=== PATIENT | female | born 1985 | race Caucasian/White ===

== ENCOUNTER 2017-05-11 18:32 | Emergency (ER) | payer SELFPAY ==
[~2017-05-11] VITALS: Ht 162.6 cm; Wt 82.6 kg
[~2017-05-11 18:32] MED LIST: AMOX500C2 PO; AMOX875T2 PO; AZIT-21 PO; AZIT250T PO; HYDR-3812 PO; HYDR1TAB PO; METH4TAB PO; NITR-65 PO; NITR100C3 PO; PHEN100T26 PO; PHEN200T27 PO; PRD20T PO; SULF1TAB38 PO; TRAM50TA2 PO
--- NOTE | 2017-05-11 18:53 | ED GU-Female ---
General Stated Complaint: CRAMPING;6 WKS ;SPOTTING Source: patient, family (mom) Exam Limitations: no limitations History of Present Illness Time seen by provider: 18:40 Initial Comments Patient has ER by private conveyance with chief complaint that 5 days ago she experienced a small amount of bright red bleeding from the vagina after sexual intercourse and went to her doctor who told her that she did have a bacterial infection but was too early on to treat it. She's having no vaginal pain, itching, discomfort. No dysuria. She denies any fever, chills, cough, shortness of breath, nausea vomiting or diarrhea. However today she started experiencing some painful crampy pain in the distribution of bilateral inguinal ligaments. She is a . Her first one was induced early secondary to preeclampsia and her second one was at about 36 weeks. Her last missed her period is March 20 which puts her at 7 weeks and 4 days. She has had 1 ultrasound which was done at [place] and she says she does not recall whether a pole was seen. She doctors in [place] but lives here in [place] which is why she came to the ER tonight for her crampy abdominal pain. She is not presently having any bleeding and has not had any bleeding since 5 days ago. All vaginal deliveries. She had a bowel movement today that was normal for her although she says her bowel movements has not been normal since she had to have her colostomy takedown. 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 Superintendent [employer] is Dr. Jose Ba in [place], [place]. Allergies and Home Medications Allergies Coded Allergies: sulfamethoxazole (Unverified Allergy, Mild, 12/24/08) trimethoprim (Unverified Allergy, Mild, 12/24/08) Home Medications Azithromycin 250 Mg Tablet, 250 MG PO UD, #6 TAKE 2 TABLETS TODAY, THEN TAKE 1 TABLET DAILY FOR 4 MORE DAYS Prescribed by: KARMA MORA on 03/11/161647 Prednisone 20 Mg Tab, 40 MG PO DAILY, #8 Prescribed by: KARMA MORA on 03/11/161647 Constitutional: No chills, No diaphoresis, No fever, No malaise EENTM: No hearing loss, No ear pain, No blurred vision Respiratory: No cough, No short of breath Cardiovascular: No chest pain, No palpitations Gastrointestinal: abdominal pain (LLQ, RRQ), No constipation, No diarrhea, No nausea, No vomiting Genitourinary: see HPI, denies burning, discharge (Brown), denies dysuria, denies flank pain, denies hematuria, denies pain : Yes Expected Date of Delivery: Dec 25, 2017 LMP: Mar 20, 2017 Musculoskeletal: No back pain, No joint pain Skin: No pruritus, No rash Psychiatric/Neurological: Denies Headache, Denies Numbness, Denies Paresthesia , Denies Seizure Past Elfhlvn-Iftnbo-Qhnmwz Hx Patient Social History Type Used: Cigarettes Recent Foreign Travel: No Contact w/Someone Who Travel: No Recent Hopitalizations: No Seasonal Allergies Seasonal Allergies: Yes Reproductive System Hx Reproductive Disorders: No Genitourinary Genitourinary Disorders: Bladder Infection Family Medical History Significant Family History: No Pertinent Family Hx Physical Exam Vital Signs Vital Sign - Last 12Hours 05/11/17 18:51 Temp 98.0 Pulse 93 Resp 18 B/P (MAP) 159/92 Pulse Ox 98 O2 Delivery Room Air Capillary Refill : General Appearance: WD/WN, no apparent distress HEENT: PERRL/EOMI, pharynx normal Neck: non-tender, normal inspection Cardiovascular: normal peripheral pulses, regular rate, rhythm, no edema Respiratory: chest non-tender, lungs clear, normal breath sounds Gastrointestinal: normal bowel sounds, soft, No distended, No guarding, No rebound, tenderness (bilateral lower quadrants mildly tender around the inguinal ligaments.) Neurologic/Psychiatric: alert, normal mood/affect, oriented x 3 Skin: normal color, warm/dry Progress/Results/Core Measures Suspected Sepsis SIRS Temperature: Pulse: Respiratory Rate: Laboratory Tests 05/11/17 19:30: White Blood Count 15.4H Blood Pressure / Mean: Laboratory Tests 05/11/17 19:30: Platelet Count 358 Results/Orders Lab Results Laboratory Tests Test 05/11/17 19:17 05/11/17 19:30 Range/Units Urine Color YELLOW Urine Clarity CLEAR Urine pH 7 5-9 Urine Specific Marion 1.015 L 1.016-1.022 Urine Protein NEGATIVE NEGATIVE Urine Glucose (UA) NEGATIVE NEGATIVE Urine Ketones NEGATIVE NEGATIVE Urine Nitrite NEGATIVE NEGATIVE Urine Bilirubin NEGATIVE NEGATIVE Urine Urobilinogen NORMAL NORMAL MG/DL Urine Leukocyte Esterase NEGATIVE NEGATIVE Urine RBC (Auto) NEGATIVE NEGATIVE Urine RBC NONE /HPF Urine WBC RARE /HPF Urine Squamous Epithelial Cells 2-5 /HPF Urine Crystals NONE /LPF Urine Bacteria TRACE /HPF Urine Casts NONE /LPF Urine Mucus SMALL H /LPF Urine Culture Indicated NO Urine Opiates Screen NEGATIVE NEGATIVE Urine Oxycodone Screen NEGATIVE NEGATIVE Urine Methadone Screen POSITIVE H NEGATIVE Urine Propoxyphene Screen NEGATIVE NEGATIVE Urine Barbiturates Screen NEGATIVE NEGATIVE Ur Tricyclic Antidepressants Screen NEGATIVE NEGATIVE Urine Phencyclidine Screen NEGATIVE NEGATIVE Urine Amphetamines Screen POSITIVE H NEGATIVE Urine Methamphetamines Screen NEGATIVE NEGATIVE Urine Benzodiazepines Screen POSITIVE H NEGATIVE Urine Cocaine Screen NEGATIVE NEGATIVE Urine Cannabinoids Screen POSITIVE H NEGATIVE White Blood Count 15.4 H 4.3-11.0 10^3/uL Red Blood Count 4.74 4.35-5.85 10^6/uL Hemoglobin 14.1 11.5-16.0 G/DL Hematocrit 42 35-52 % Mean Corpuscular Volume 88 80-99 FL Mean Corpuscular Hemoglobin 30 25-34 PG Mean Corpuscular Hemoglobin Concent 34 32-36 G/DL Red Cell Distribution Width 14.0 10.0-14.5 % Platelet Count 358 130-400 10^3/uL Mean Platelet Volume 10.0 7.4-10.4 FL Neutrophils (%) (Auto) 64 42-75 % Lymphocytes (%) (Auto) 27 12-44 % Monocytes (%) (Auto) 7 0-12 % Eosinophils (%) (Auto) 1 0-10 % Basophils (%) (Auto) 0 0-10 % Neutrophils # (Auto) 9.9 H 1.8-7.8 X 10^3 Lymphocytes # (Auto) 4.2 H 1.0-4.0 X 10^3 Monocytes # (Auto) 1.1 H 0.0-1.0 X 10^3 Eosinophils # (Auto) 0.2 0.0-0.3 10^3/uL Basophils # (Auto) 0.0 0.0-0.1 10^3/uL My Orders Orders - MICHAEL BLACK Cbc With Automated Diff (05/11/17 18:35) Comprehensive Metabolic Panel (05/11/17 18:35) Drug Screen Stat (Urine) (05/11/17 18:35) Hcg,Quantitative (05/11/17 18:35) Ua Culture If Indicated (05/11/17 18:35) Abo Rh Type (05/11/17 18:35) Us Ob Single Fetus<14 [id number] (05/11/17 18:37) Manual Differential (05/11/17 19:30) Vital Signs/I&O Vital Sign - Last 12Hours 05/11/17 18:51 Temp 98.0 Pulse 93 Resp 18 B/P (MAP) 159/92 Pulse Ox 98 O2 Delivery Room Air Capillary Refill : Progress Note #1: Time: 18:53 Progress Note Since we don't have the information from the ultrasound to rule out possible tubal we'll go ahead and obtain another ultrasound. It does seem likely that her bleeding was more due to the recent vaginal intercourse. Her discharge is known by her OB provider and they have elected not to do a box at this time. We will not repeat a wet prep at this time. We will obtain basic labs and urine and if nothing else looks off and it is most likely that the diagnosis is rounded, pain or some other benign intra-abdominal process. We'll have her follow-up with her OB provider. Progress Note #2: Time: 19:53 Progress Note Patient does have a modest white count of 15,000 however her urine drug screen is positive for amphetamines, benzos, methadone and cannabinoids. When questioned about this she states that all she has taken is Tylenol recently. She asked if it's possible that Tylenol could contain these substances. This provider is not aware of that being a possibility however amphetamines could explain a white count and problems with her bowels being loose. 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 Otherwise her urine does not indicate infection. Her bacterial vaginitis is asymptomatic so is unlikely to be causing her white count to be elevated. While it is in her interest to have her bacterial vaginitis treated despite being asymptomatic there is no impetus to have this done tonight and she can continue to defer this to the care of her ampoule washing machine operator. Diagnostic Imaging Diagonstic Imaging: Ultrasound Plain Films/CT/US/NM/MRI: pelvis (OB less than 14 weeks) Comments equip tech: 6 weeks and 2 days. Heart rate 125. No mention of previa. NAME: JESSICA TOBIAS [facility] REC#: [id number] PHYSICIAN: MICHAEL BLACK MD CC: DEE HOWE MD; MICHAEL BLACK Page 1 of 1 RADIOLOGY REPORT VIA [place], [place] CC: DEE HOWE MD; MICHAEL BLACK Page 1 of 1 RADIOLOGY REPORT NAME: JESSICA TOBIAS [facility] REC#: [id number] PT STATUS: REG ER : 1985 PHYSICIAN: MICHAEL BLACK MD ADMIT DATE: 05/11/17/ER Signed Date of Exam: 05/11/17 US OB SINGLE FETUS<14 [id number] PROCEDURE: US OB SINGLE FETUS <14 WKS. TECHNIQUE: Multiple real-time grayscale images were obtained over the gravid uterus in various projections. INDICATION: Cramping and vaginal discharge. FINDINGS: Within the uterus, there is a single gestational sac. This contains a pole. Its crown-rump length would estimate that this gestation at 6 weeks and 2 days gestational age. cardiac motion is present and measured at 125 beats per minute. No subchorionic hematoma is demonstrated. The ovaries could not be demonstrated due to overlying bowel. No free fluid is demonstrated. IMPRESSION: 1. Single intrauterine gestation at 6 weeks 2 days gestational age demonstrates appropriate cardiac motion at 125 beats per minute. No subchorionic hematoma is demonstrated. Dictated by: Dictated on workstation # [id number] Dict: 05/11/171899 Trans: 05/11/171904 Interpreted by: DEE HOWE MD Electronically signed by: DEE HOWE MD 05/11/171904 Reviewed: Reviewed by Ks Departure Impression Impression: Primary Impression: Round ligament pain Additional Impression: Leukocytosis, unspecified Disposition: 01 HOME, SELF-CARE Condition: Stable Departure-Patient Inst. Decision time for Depature: 19:56 Referrals: NO,LOCAL PHYSICIAN (PCP/Family) Primary Care Physician Patient Instructions: Round Ligament Pain Add. Discharge Instructions: If her pain comes back slow down or sit down and drink a glass of cool water and then try to get some rest. Tylenol 1000 mg every 8 hours would be reasonable to help with her pain. Plan follow-up with Dr. Ba next week for further evaluation. Return to the ER to begin to experience fever, nausea and vomiting, vaginal bleeding or intractable abdominal pain. MICHAEL BLACK May 11, 2017 18:53
--- NOTE | 2017-05-11 19:05 | Diagnostic Imaging Report ---
PROCEDURE: US OB SINGLE FETUS <14 WKS. TECHNIQUE: Multiple real-time grayscale images were obtained over the gravid uterus in various projections. INDICATION: Cramping and vaginal discharge. FINDINGS: Within the uterus, there is a single gestational sac. This contains a pole. Its crown-rump length would estimate that this gestation at 6 weeks and 2 days gestational age. cardiac motion is present and measured at 125 beats per minute. No subchorionic hematoma is demonstrated. The ovaries could not be demonstrated due to overlying bowel. No free fluid is demonstrated. IMPRESSION: 1. Single intrauterine gestation at 6 weeks 2 days gestational age demonstrates appropriate cardiac motion at 125 beats per minute. No subchorionic hematoma is demonstrated. Dictated by: Dictated on workstation # [id number]
[2017-05-11 19:22] LABS: BILIRUBIN,URINE NEGATIVE (NEGATIVE); KETONES,URINE NEGATIVE (NEGATIVE); LEUKOCYTE ESTERASE ,URINE NEGATIVE (NEGATIVE); NITRITE,URINE NEGATIVE (NEGATIVE); PH,URINE 7 (5-9); PROTEIN,URINE NEGATIVE (NEGATIVE); UROBILINOGEN,URINE NORMAL (NORMAL)
[2017-05-11 19:35] LABS: WBC,URINE RARE /HPF
[2017-05-11 19:43] LABS: BASOPHILS % (AUTO) 0 % (0-10); EOSINOPHILS # (AUTO) 0.2 10^3/uL (0.0-0.3); EOSINOPHILS % (AUTO) 1 % (0-10); LYMPHOCYTES # (AUTO) 4.2 X 10^3 (1.0-4.0); LYMPHOCYTES % (AUTO) 27 % (12-44); MEAN CORPUSCULAR HEMOGLOBIN 30 PG (25-34); MEAN CORPUSCULAR HGB CONC 34 G/DL (32-36); MEAN CORPUSCULAR VOLUME 88 FL (80-99); MONOCYTES # (AUTO) 1.1 X 10^3 (0.0-1.0); MONOCYTES % (AUTO) 7 % (0-12); NEUTROPHILS # (AUTO) 9.9 X 10^3 (1.8-7.8); NEUTROPHILS % (AUTO) 64 % (42-75); PLATELET COUNT 358 10^3/uL (130-400); RED BLOOD COUNT 4.74 10^6/uL (4.35-5.85); WHITE BLOOD COUNT 15.4 10^3/uL (4.3-11.0)
[2017-05-11 20:00] LABS: BAND NEUTROPHILS 0 %; BASOPHILS % (MANUAL) 0 %; EOSINOPHILS % (MANUAL) 0 %; LYMPHOCYTES % (MANUAL) 38 %; NEUTROPHILS % (MANUAL) 58 %
[2017-05-11 20:07] LABS: ALANINE AMINOTRANSFERASE 22 U/L (0-55); ALBUMIN 4.2 GM/DL (3.2-4.5); ANION GAP 9 MMOL/L (5-14); ASPARTATE AMINO TRANSFERASE 14 U/L (5-34); BILIRUBIN,TOTAL 0.2 MG/DL (0.1-1.0); BLOOD UREA NITROGEN 10 MG/DL (7-18); BUN/CREATININE RATIO 16; CALCIUM 10.1 MG/DL (8.5-10.1); CARBON DIOXIDE 19 MMOL/L (21-32); CHLORIDE 110 MMOL/L (98-107); CREATININE SERUM 0.63 MG/DL (0.60-1.30); GFR ESTIMATED > 60; GLUCOSE 90 MG/DL (70-105); POTASSIUM 3.8 MMOL/L (3.6-5.0); SODIUM 138 MMOL/L (135-145); TOTAL PROTEIN 6.9 GM/DL (6.4-8.2)
[2017-05-11 20:22] VITALS: BP 122/83
== END 2017-05-11 20:22 | disposition home or self-care (01) ==
LOC: EDUNIT# 18:32 → ER 18:34
DX: O99.89 Other specified diseases and conditions complicating pregnancy, childbirth and the puerperium (principal); R10.2 Pelvic and perineal pain; O99.111 Other diseases of the blood and blood-forming organs and certain disorders involving the immune mechanism complicating pregnancy, first trimester; D72.829 Elevated white blood cell count, unspecified; Z3A.01 Less than 8 weeks gestation of pregnancy
CPT/HCPCS: 36415; 76801; 80053; 80306; 81000; 84702; 85007; 85027; 86900; 86901; 99282

== ENCOUNTER 2017-07-02 23:16 | Emergency (ER) | payer MEDICAID ==
[~2017-07-02] VITALS: Ht 162.6 cm; Wt 83.9 kg
[~2017-07-02 23:16] MED LIST changes: +ACHD5005 PO; -HYDR-3812 PO
--- OUTSIDE RECORDS SUMMARY | 2017-07-02 23:23 | XMS REPORT | Continuity of Care Document ---
Author Author [facility] Organization [facility] Address Unknown Phone Unavailable Allergies Active Description Code Type Severity Reaction Onset Reported/Identified Relationship to Patient Clinical Status Yes sulfamethoxazole [id number] Drug Allergy Mild N/A 12/24/2008 Yes trimethoprim [id number] Drug Allergy Mild N/A 12/24/2008 Medications There is no data. Problems Date Dx Coded Attending Type Code Diagnosis Diagnosed By 12/26/2010 Ot 845.00 SPRAIN OF ANKLE NOS 12/26/2010 Ot 959.7 LOWER LEG INJURY NOS 12/26/2010 Ot E000.8 OTHER EXTERNAL CAUSE STATUS 12/26/2010 Ot E849.0 ACCIDENT IN HOME 12/26/2010 Ot E880.9 FALL ON STAIR/STEP NEC 08/10/2011 Ot 623.5 NONINFECT VAG LEUKORRHEA 11/19/2011 Ot 599.0 URIN TRACT INFECTION NOS 11/19/2011 Ot 788.1 DYSURIA 04/29/2012 Ot 782.1 NONSPECIF SKIN ERUPT NEC 10/29/2012 JUAN ESCOBEDO DO Ot 595.9 CYSTITIS NOS 10/29/2012 JUAN ESCOBEDO DO Ot 788.1 DYSURIA 06/12/2013 KARMA MORA [employer]OTARY ADJUSTER Ot 465.9 ACUTE URI NOS 06/12/2013 KARMA MORA ROTARY ADJUSTER Ot 786.2 COUGH 05/30/2015 Ot 626.0 05/30/2015 KARMA MORA [employer]OTARY ADJUSTER Ot N72 INFLAMMATORY DISEASE OF CERVIX UTERI 05/30/2015 Ot 626.0 10/29/2015 Ot 626.0 ABSENCE OF MENSTRUATION 10/29/2015 RASHEEDA TSUART Ot K04.7 PERIAPICAL ABSCESS WITHOUT SINUS 10/29/2015 Ot 626.0 ABSENCE OF MENSTRUATION 10/30/2015 RASHEEDA STUART Ot K04.7 PERIAPICAL ABSCESS WITHOUT SINUS 01/01/2016 Ot 626.0 ABSENCE OF MENSTRUATION 01/01/2016 TONIE DAY DO D Ot F17.210 NICOTINE DEPENDENCE, CIGARETTES, UNCOMPL 01/01/2016 TONIE DAY DO Nils Ot K01.1 IMPACTED TEETH 01/01/2016 TONIE DAY DO Ot K08.8 OTHER SPECIFIED DISORDERS OF TEETH AND S 01/01/2016 Ot 626.0 ABSENCE OF MENSTRUATION 01/02/2016 BARB VARNER TONIE Wray Ot F17.210 NICOTINE DEPENDENCE, CIGARETTES, UNCOMPL 01/02/2016 BARB VARNER TONIE Wray Ot K01.1 IMPACTED TEETH 01/02/2016 BARB VARNER TONIE Wray Ot K08.8 OTHER SPECIFIED DISORDERS OF TEETH AND S 03/11/2016 KARMA MORA APRN Ot F17.210 NICOTINE DEPENDENCE, CIGARETTES, UNCOMPL 03/11/2016 KARMA MORA APRN Ot J02.9 ACUTE PHARYNGITIS, UNSPECIFIED 03/11/2016 KARMA MORA APRN Ot J40 BRONCHITIS, NOT SPECIFIED ACUTE OR CH 03/11/2016 KARMA MORA APRN Ot R21 RASH AND OTHER NONSPECIFIC SKIN ERUPTION 03/11/2016 KARMA MORA APRN Ot R51 HEADACHE 03/12/2016 KARMA MORA APRN Ot F17.210 NICOTINE DEPENDENCE, CIGARETTES, UNCOMPL 03/12/2016 KARMA MORA APRN Ot J02.9 ACUTE PHARYNGITIS, UNSPECIFIED 03/12/2016 KARMA MORA APRN Ot J40 BRONCHITIS, NOT SPECIFIED ACUTE OR CH 03/12/2016 KARMA MORA APRN Ot R21 RASH AND OTHER NONSPECIFIC SKIN ERUPTION 03/12/2016 KARMA MORA APRN Ot R51 HEADACHE 03/12/2016 KARMA MORA APRN Ot F17.210 NICOTINE DEPENDENCE, CIGARETTES, UNCOMPL 03/12/2016 KARMA MORA APRN Ot J02.9 ACUTE PHARYNGITIS, UNSPECIFIED 03/12/2016 KARMA MORA APRN Ot J40 BRONCHITIS, NOT SPECIFIED ACUTE OR CH 03/12/2016 KARMA MORA APRN Ot R21 RASH AND OTHER NONSPECIFIC SKIN ERUPTION 03/12/2016 KARMA MORA APRN Ot R51 HEADACHE 03/17/2016 KARMA MORA APRN Ot F17.210 NICOTINE DEPENDENCE, CIGARETTES, UNCOMPL 03/17/2016 MORA, PETER J ROTARY ADJUSTER Ot J02.9 ACUTE PHARYNGITIS, UNSPECIFIED 03/17/2016 KARMA MORA ROTARY ADJUSTER Ot J40 BRONCHITIS, NOT SPECIFIED ACUTE OR CH 03/17/2016 KARMA MORA ROTARY ADJUSTER Ot R21 RASH AND OTHER NONSPECIFIC SKIN ERUPTION 03/17/2016 KARMA MORA ROTARY ADJUSTER Ot R51 HEADACHE 05/11/2017 MICHAEL BLACK MD Ot D72.829 ELEVATED WHITE BLOOD CELL COUNT, UNSPECI 05/11/2017 MICHAEL BLACK MD Ot O20.9 HEMORRHAGE IN EARLY , UNSPECIFI 05/11/2017 MICHAEL BLACK MD Ot O99.111 OTH DIS OF BLD/BLD-FORM ORG/IMMUN MECHNS 05/11/2017 MICHAEL BLACK MD Ot O99.89 OTH DISEASES AND CONDITIONS COMPL PREG/C 05/11/2017 MICHAEL BLACK MD Ot R10.2 PELVIC AND PERINEAL PAIN 05/11/2017 MICHAEL BLACK MD Ot Z3A.01 LESS THAN 8 WEEKS GESTATION OF 05/16/2017 MICHAEL BLACK MD Ot D72.829 ELEVATED WHITE BLOOD CELL COUNT, UNSPECI 05/16/2017 MICHAEL BLACK MD Ot O20.9 HEMORRHAGE IN EARLY , UNSPECIFI 05/16/2017 MICHAEL BLACK MD Ot O99.111 OTH DIS OF BLD/BLD-FORM ORG/IMMUN MECHNS 05/16/2017 MICHAEL BLACK MD Ot O99.89 OTH DISEASES AND CONDITIONS COMPL PREG/C 05/16/2017 MICHAEL BLACK MD Ot R10.2 PELVIC AND PERINEAL PAIN 05/16/2017 MICHAEL BLACK MD Ot Z3A.01 LESS THAN 8 WEEKS GESTATION OF Procedures There is no data. Results Test Result Range Complete urinalysis with reflex to culture - 05/11/17 19:17 Urine color determination YELLOW NRG Urine clarity determination CLEAR NRG Urine pH measurement by test strip 7 5-9 Specific gravity of urine by test strip 1.015 1.016- 1.022 Urine protein assay by test strip, semi-quantitative NEGATIVE NEGATIVE Urine glucose detection by automated test strip NEGATIVE NEGATIVE Erythrocytes detection in urine sediment by light microscopy NEGATIVE NEGATIVE Urine ketones detection by automated test strip NEGATIVE NEGATIVE Urine nitrite detection by test strip NEGATIVE NEGATIVE Urine total bilirubin detection by test strip NEGATIVE NEGATIVE Urine urobilinogen measurement by automated test strip (mass/volume) NORMAL NORMAL Urine leukocyte esterase detection by dipstick NEGATIVE NEGATIVE Automated urine sediment erythrocyte count by microscopy (number/high power field) NONE NRG Automated urine sediment leukocyte count by microscopy (number/high power field ) RARE NRG Bacteria detection in urine sediment by light microscopy TRACE NRG Squamous epithelial cells detection in urine sediment by light microscopy 2-5 NRG Crystals detection in urine sediment by light microscopy NONE NRG Casts detection in urine sediment by light microscopy NONE NRG Mucus detection in urine sediment by light microscopy SMALL NRG Complete urinalysis with reflex to culture NO NRG Urine drug screening test - 05/11/17 19:17 Urine phencyclidine detection by screening method NEGATIVE NEGATIVE Urine benzodiazepines detection by screening method POSITIVE NEGATIVE Urine cocaine detection NEGATIVE NEGATIVE Urine amphetamines detection by screening method POSITIVE NEGATIVE Urine methamphetamine detection by screening method NEGATIVE NEGATIVE Urine cannabinoids detection by screening method POSITIVE NEGATIVE Urine opiates detection by screening method NEGATIVE NEGATIVE Urine barbiturates detection NEGATIVE NEGATIVE Screening urine tricyclic antidepressants detection NEGATIVE NEGATIVE Urine methadone detection by screening method POSITIVE NEGATIVE Urine oxycodone detection NEGATIVE NEGATIVE Urine propoxyphene detection NEGATIVE NEGATIVE Complete blood count (CBC) with automated white blood cell (WBC) differential - 05/11/17 19:30 Blood leukocytes automated count (number/volume) 15.4 10*3/uL 4.3-11.0 Blood erythrocytes automated count (number/volume) 4.74 10*6/uL 4.35-5.85 Venous blood hemoglobin measurement (mass/volume) 14.1 g/dL 11.5-16.0 Blood hematocrit (volume fraction) 42 % 35-52 Automated erythrocyte mean corpuscular volume 88 [foz_us] 80-99 Automated erythrocyte mean corpuscular hemoglobin (mass per erythrocyte) 30 pg 25-34 Automated erythrocyte mean corpuscular hemoglobin concentration measurement ( mass/volume) 34 g/dL 32-36 Automated erythrocyte distribution width ratio 14.0 % 10.0-14.5 Automated blood platelet count (count/volume) 358 10*3/uL 130-400 Automated blood platelet mean volume measurement 10.0 [foz_us] 7.4-10.4 Automated blood neutrophils/100 leukocytes 64 % 42-75 Automated blood lymphocytes/100 leukocytes 27 % 12-44 Blood monocytes/100 leukocytes 7 % 0-12 Automated blood eosinophils/100 leukocytes 1 % 0-10 Automated blood basophils/100 leukocytes 0 % 0-10 Blood neutrophils automated count (number/volume) 9.9 10*3 1.8-7.8 Blood lymphocytes automated count (number/volume) 4.2 10*3 1.0-4.0 Blood monocytes automated count (number/volume) 1.1 10*3 0.0-1.0 Automated eosinophil count 0.2 10*3/uL 0.0-0.3 Automated blood basophil count (count/volume) 0.0 10*3/uL 0.0-0.1 ABO+Rh group - 05/11/17 19:30 ABO+Rh group OP NRG Transfusion band number [id number] Blood manual differential performed detection - 05/11/17 19:30 Blood monocytes/100 leukocytes 4 % NRG Manual blood segmented neutrophils/100 leukocytes 58 % NRG Blood band neutrophils/100 leukocytes 0 % NRG Manual blood lymphocytes/100 leukocytes 38 % NRG Manual eosinophils/100 leukocytes in nose 0 % NRG Manual blood basophils/100 leukocytes 0 % NRG Blood erythrocyte morphology finding identification NORMAL [facility] Comprehensive metabolic panel - 05/11/17 19:30 Serum or plasma sodium measurement (moles/volume) 138 mmol/L 135-145 Serum or plasma potassium measurement (moles/volume) 3.8 mmol/L 3.6-5.0 Serum or plasma chloride measurement (moles/volume) 110 mmol/L 98-107 Carbon dioxide 19 mmol/L 21-32 Serum or plasma anion gap determination (moles/volume) 9 mmol/L 5-14 Serum or plasma urea nitrogen measurement (mass/volume) 10 mg/dL 7-18 Serum or plasma creatinine measurement (mass/volume) 0.63 mg/dL 0.60-1.30 Serum or plasma urea nitrogen/creatinine mass ratio 16 NRG Serum or plasma creatinine measurement with calculation of estimated glomerular filtration rate > NRG Serum or plasma glucose measurement (mass/volume) 90 mg/dL 70-105 Serum or plasma calcium measurement (mass/volume) 10.1 mg/dL 8.5-10.1 Serum or plasma total bilirubin measurement (mass/volume) 0.2 mg/dL 0.1-1.0 Serum or plasma alkaline phosphatase measurement (enzymatic activity/volume) 76 U/L 40-136 Serum or plasma aspartate aminotransferase measurement (enzymatic activity/ volume) 14 U/L 5-34 Serum or plasma alanine aminotransferase measurement (enzymatic activity/volume ) 22 U/L 0-55 Serum or plasma protein measurement (mass/volume) 6.9 g/dL 6.4-8.2 Serum or plasma albumin measurement (mass/volume) 4.2 g/dL 3.2-4.5 Serum or plasma choriogonadotropin measurement (units/volume) - 05/11/17 19:30 Serum or plasma choriogonadotropin measurement (units/volume) 24641 m[iU]/mL <5 Encounters ACCT No. Visit Date/Time Discharge Status Pt. Type Provider Facility Loc./Unit Complaint [id number] 05/11/2017 18:34:00 05/11/2017 20:22:00 DIS Emergency MICHAEL BLACK MD [facility] ER CRAMPING;6 WKS ; SPOTTING [id number] 03/11/2016 16:19:00 03/11/2016 16:51:00 DIS Emergency KARMA MORA APRN [facility] ER THROAT;COUGH;HEADACHE [id number] 01/01/2016 21:24:00 01/01/2016 22:08:00 DIS Emergency TONIE DAY DO [facility] ER [id number] 10/29/2015 18:29:00 10/29/2015 19:26:00 DIS Emergency RASHEEDA STUART [facility] ER [id number] 05/30/2015 17:37:00 05/30/2015 20:30:00 DIS Emergency KARMA MOAR APRN [facility] ER [id number] 06/12/2013 14:37:00 06/12/2013 16:12:00 DIS Emergency KARMA MORA APRN [facility] ER [id number] 10/29/2012 14:14:00 10/29/2012 15:08:00 DIS Emergency JUAN ESCOBEDO DO [facility] ER [id number] 07/02/2017 23:19:00 ACT Emergency KATT ESPINOSA MD [facility] ER HEADACHE [id number] 04/29/2012 13:58:00 Document Registration [id number] 11/19/2011 22:29:00 Document Registration [id number] 09/01/2011 14:27:00 Document Registration [id number] 08/10/2011 13:06:00 Document Registration [id number] 12/26/2010 19:57:00 Document Registration
[2017-07-02] MEDS ORDERED: NS IV 1000 ML 1,000 ML IV ONE (23:57)
[2017-07-02] MEDS ORDERED: PROMETHAZINE INJ 25 MG/ML (PHENERGAN) AMP IVP STA (23:57)
[2017-07-02] MEDS ORDERED: ACETAMINOPHEN 500 MG TAB (TYLENOL) PO STA (23:57)
[2017-07-02] MEDS ORDERED: DEXAMETHASONE PF 10 MG/ML (DECADRON) VIAL IV STA (23:57)
[2017-07-02] MEDS ORDERED: DEXAMETHASONE 10 MG/ML (DECADRON) 1 ML VIAL ONE (23:59)
[2017-07-03] MEDS ORDERED: diphenhydrAMINE 50 MG/ML INJ (BENADRYL) IV ONE
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
[2017-07-03 01:34] VITALS: BP 135/84
== END 2017-07-03 01:34 | disposition home or self-care (01) ==
LOC: EDUNIT# 23:16 → ER 23:19
DX: G43.909 Migraine, unspecified, not intractable, without status migrainosus (principal); F17.210 Nicotine dependence, cigarettes, uncomplicated; Z87.440 Personal history of urinary (tract) infections

== ENCOUNTER → 2018-05-18 | Outpatient (CLI) | payer MEDICAID, OTHER ==
--- NOTE | 2018-05-18 18:48 | Diagnostic Imaging Report ---
INDICATION: Pain in the inferior right breast. COMPARISON: No prior studies are available for comparison. TECHNIQUE: 2D and 3D bilateral diagnostic mammography was performed with computer-aided detection (CAD) system. FINDINGS: Both breasts are heterogeneously dense, limiting the sensitivity of mammography. There is a lobulated nodule in the lower and outer aspect of the right breast, approximately 5-7 cm from the nipple. This has circumscribed margins and most likely represents a fibroadenoma or cyst. This will be further evaluated with sonography. Inferior right breast is otherwise unremarkable. Left breast is unremarkable. No suspicious calcifications are seen. Axillae are unremarkable. IMPRESSION: Right breast density in the lower-outer aspect. Further evaluation with ultrasound is recommended. Ultrasound evaluation of the area of pain in the inferior right breast is also recommended and will be performed today. ACR BI-RADS Category 0: Incomplete. (Needs additional imaging evaluation). Result letter will be mailed to the patient. Note: At least 10% of breast cancer is not imaged by mammography. Dictated by: Dictated on workstation # [id number]
--- NOTE | 2018-05-19 08:33 | Diagnostic Imaging Report ---
Indication: Pain in the inferior right breast. Patient also has a nodular density in the lower outer aspect of the right breast. This further evaluation is performed with ultrasound. Correlation is made with diagnostic mammogram from 05/18/2018. There is a circumscribed ovoid hypoechoic nodule in the right breast 8 o'clock location 4 cm from the nipple. This is wider than it is tall. No internal vascularity is seen. This measures 1.0 x 0.7 x 1.2 cm and most suggestive of a fibroadenoma. This does correlate with the mammographic density. No abnormality at the 6 o'clock location in area of patient's pain is identified. Impression: BI-RADS 3 Circumscribed hypoechoic mass 8 o'clock location of the right breast, 4 cm from the nipple. Imaging characteristics are most suggestive of a fibroadenoma. Even so, followup right breast ultrasound in 6 months is recommended to confirm stability. ACR BI-RADS Category 3: Probably benign findings. Dictated by: Dictated on workstation # [id number]
== END ==
LOC: RAD 14:25
PROVIDERS: ATTEND Nurse Practitioner
DX: N63.13 Unspecified lump in the right breast, lower outer quadrant (principal)
CPT/HCPCS: 77066

== ENCOUNTER 2018-08-11 19:50 | Emergency (ER) | payer SELFPAY ==
[~2018-08-11] VITALS: Ht 160 cm; Wt 74.8 kg
[2018-08-11] MEDS ORDERED: LISI10TA2 PO (20:13)
[2018-08-11 21:28] LABS: BASOPHILS % (AUTO) 0 % (0-10); EOSINOPHILS # (AUTO) 0.1 10^3/uL (0.0-0.3); EOSINOPHILS % (AUTO) 1 % (0-10); HEMATOCRIT 42 % (35-52); HEMOGLOBIN 14.2 G/DL (11.5-16.0); LYMPHOCYTES # (AUTO) 2.6 X 10^3 (1.0-4.0); LYMPHOCYTES % (AUTO) 21 % (12-44); MEAN CORPUSCULAR HEMOGLOBIN 29 PG (25-34); MEAN CORPUSCULAR HGB CONC 34 G/DL (32-36); MEAN CORPUSCULAR VOLUME 87 FL (80-99); MEAN PLATELET VOLUME 10.4 FL (7.4-10.4); MONOCYTES # (AUTO) 1.2 X 10^3 (0.0-1.0); MONOCYTES % (AUTO) 10 % (0-12); NEUTROPHILS # (AUTO) 8.2 X 10^3 (1.8-7.8); NEUTROPHILS % (AUTO) 68 % (42-75); PLATELET COUNT 396 10^3/uL (130-400); RED CELL DISTRIBUTION WIDTH 14.4 % (10.0-14.5); WHITE BLOOD COUNT 12.1 10^3/uL (4.3-11.0)
[2018-08-11 21:28] LABS: BILIRUBIN,URINE NEGATIVE (NEGATIVE); CLARITY,URINE CLEAR; COLOR,URINE YELLOW; GLUCOSE, URINE (UA) NEGATIVE (NEGATIVE); KETONES,URINE NEGATIVE (NEGATIVE); LEUKOCYTE ESTERASE ,URINE NEGATIVE (NEGATIVE); NITRITE,URINE NEGATIVE (NEGATIVE); PH,URINE 6 (5-9); PROTEIN,URINE NEGATIVE (NEGATIVE); UROBILINOGEN,URINE NORMAL (NORMAL)
[2018-08-11] MEDS ORDERED: ONDANSETRON 4 MG/2 ML (SDV) Z0FRAN IVP ONE (21:30)
[2018-08-11 21:35] LABS: BACTERIA,URINE MODERATE /HPF; RBC,URINE RARE /HPF; WBC,URINE RARE /HPF
[2018-08-11 21:40] LABS: ALANINE AMINOTRANSFERASE 22 U/L (0-55); ALBUMIN 4.4 GM/DL (3.2-4.5); ALKALINE PHOSPHATASE 77 U/L (40-136); AMYLASE 36 U/L (25-125); BILIRUBIN,TOTAL 0.2 MG/DL (0.1-1.0); BUN/CREATININE RATIO 15; CALCIUM 9.4 MG/DL (8.5-10.1); CARBON DIOXIDE 26 MMOL/L (21-32); CHLORIDE 104 MMOL/L (98-107); CREATININE SERUM 0.67 MG/DL (0.60-1.30); GFR ESTIMATED > 60; GLUCOSE 93 MG/DL (70-105); LIPASE 21 U/L (8-78); POTASSIUM 3.4 MMOL/L (3.6-5.0); SODIUM 140 MMOL/L (135-145)
[2018-08-11] MEDS ORDERED: cefTRIAXone FOR IV USE 1,000 MG in WATER (STERILE) FOR INJECTION 10 ML IV ONE (22:00)
[2018-08-11] MEDS ORDERED: KETOROLAC 30 MG/ML VIAL IVP ONE (22:00)
[2018-08-11] MEDS ORDERED: CEPH-507 PO (22:16)
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
[2018-08-11 22:26] VITALS: BP 111/76
== END 2018-08-11 22:34 | disposition home or self-care (01) ==
LOC: EDUNIT# 19:50 → ER 19:52
DX: N39.0 Urinary tract infection, site not specified (principal); F17.210 Nicotine dependence, cigarettes, uncomplicated; Z98.890 Other specified postprocedural states; Z93.3 Colostomy status; Z87.448 Personal history of other diseases of urinary system; Z88.2 Allergy status to sulfonamides; Z88.6 Allergy status to analgesic agent; Z88.8 Allergy status to other drugs, medicaments and biological substances; Z87.19 Personal history of other diseases of the digestive system; Z77.22 Contact with and (suspected) exposure to environmental tobacco smoke (acute) (chronic)
CPT/HCPCS: 36415; 80053; 81000; 82150; 83690; 85025; 87088; 96374; 96375

== ENCOUNTER 2018-09-29 20:19 | Emergency (ER) | payer SELFPAY ==
[~2018-09-29] VITALS: Ht 160 cm; Wt 78.0 kg
[~2018-09-29 20:19] MED LIST changes: +CEPH-507 PO; +LISI10TA2 PO
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
--- OUTSIDE RECORDS SUMMARY | 2018-09-29 20:24 | XMS REPORT | Continuity of Care Document ---
Author Author [facility] Organization [facility] Address Unknown Phone Unavailable Care Team Providers Care Deck Cadet Name Role Phone NO, LOCAL PHYSICIAN PP Unavailable Insurance Providers Payer Name Policy Number Subscriber Name Relationship Self Pay Nidhi Perez 01 Self / Same As Patient Advance Directives Directive Response Recorded Date Advance Directives N 10/29/12 2:23pm Organ Donor N 10/29/12 2:23pm Problems No Known Problems or Medical conditions. Social History History Response Recorded Date/Time Alcohol Use Occasionally Uses 10/29/12 5: 27pm Recreational Drug Use N 10/29/12 2:23pm Allergies, Adverse Reactions, Alerts Allergen Type Severity Reaction Last Updated Sulfamethoxazole Allergy Mild 12/24/08 trimethoprim Allergy Mild 12/24/08 Medications Medication Dose Units Route Sig Qty Days Phenazopyridine HCl (Pyridium) 1 Each PO TID PRN 15 Nitrofurantoin Macrocrystals (Macrobid) 1 Each PO BID 20 Methylprednisolone (Medrol Dose Pack) 0 PO UD 1 Nitrofurantoin Macrocrystals (Macrobid) 100 Mg PO BID 5 Phenazopyridine HCl (Pyridium) 1 Each PO TID PRN 6 Response Recorded Date/Time Status not known Unknown Results Test Date Result Interp. Ref. Range Chlamydia DNA Probe August 10, 2011 2:52pm NEG - Chlamydia/GC DNA Probe Source August 10, 2011 2:52pm CERVIX - Lipase September 05, 2006 12:34am 155 U/L N 114-286 Neisseria gonorrhoeae DNA Probe August 10, 2011 2:52pm NEG - Serum Test, Qualitative September 01, 2011 2:37pm NEGATIVE - Urine Amorphous Sediment September 05, 2006 1:10am Few radha urates H - Urine Bacteria October 29, 2012 2:28pm TRACE /HPF - Urine Bilirubin October 29, 2012 2:28pm NEGATIVE - Urine Casts October 29, 2012 2:28pm NONE / LPF - Urine Clarity October 29, 2012 2:28pm very cloudy - Urine Color October 29, 2012 2:28pm YELLOW - Urine Crystals October 29, 2012 2:28pm NONE /LPF - Urine Culture Indicated October 29, 2012 2:28pm YES - Urine Glucose (UA) October 29, 2012 2:28pm NEGATIVE - Urine HCG, Qualitative January 02, 2007 9:54am Negative - Urine Hyaline Casts September 05, 2006 1:10am 5-10 H - Urine Ketones October 29, 2012 2:28pm NEGATIVE - Urine Leukocyte Esterase October 29, 2012 2:28pm 2+ H - Urine Mucus October 29, 2012 2:28pm NEGATIVE /LPF - Urine Nitrate September 05, 2006 1:10am Negative - Urine Nitrite October 29, 2012 2:28pm POSITIVE H - Urine Other September 19, 2008 9:44pm MODERATE WBC CLUMP - Urine Test August 10, 2011 2:30pm NEGATIVE - Urine Protein October 29, 2012 2:28pm 1+ H - Urine RBC October 29, 2012 2:28pm TNTC /HPF H - Urine Specific [place] October 29, 2012 2:28pm 1.015 L - Urine Squamous Epithelial Cells October 29, 2012 2:28pm RARE /HPF - Urine Urobilinogen October 29, 2012 2:28pm NORMAL MG/DL - Urine WBC October 29, 2012 2:28pm 50-100 / HPF H - Urine pH October 29, 2012 2:28pm 7 - Urine RBC (Auto) October 29, 2012 2:28pm 4+ H - Procedures Procedure Code Date Genital Culture 08/10/11 Urine Culture 10/29/12 Encounters Encounter Location Date/Time Departed Emergency Room [facility] 06/01 2:14pm
--- NOTE | 2018-09-29 20:36 | NUR ---
PATIENT STATES VAGINAL DISCHARGE BEGAN AFTER HAVING A BOWEL MOVEMENT YESTERDAY.
[2018-09-29 21:14] LABS: BILIRUBIN,URINE NEGATIVE (NEGATIVE); CLARITY,URINE CLEAR; COLOR,URINE YELLOW; GLUCOSE, URINE (UA) NEGATIVE (NEGATIVE); KETONES,URINE NEGATIVE (NEGATIVE); LEUKOCYTE ESTERASE ,URINE NEGATIVE (NEGATIVE); NITRITE,URINE NEGATIVE (NEGATIVE); PH,URINE 7 (5-9); PROTEIN,URINE NEGATIVE (NEGATIVE); UROBILINOGEN,URINE NORMAL (NORMAL)
[2018-09-29 21:14] LABS: BASOPHILS % (AUTO) 0 % (0-10); EOSINOPHILS # (AUTO) 0.2 10^3/uL (0.0-0.3); EOSINOPHILS % (AUTO) 2 % (0-10); HEMATOCRIT 39 % (35-52); HEMOGLOBIN 12.9 G/DL (11.5-16.0); LYMPHOCYTES # (AUTO) 4.7 X 10^3 (1.0-4.0); LYMPHOCYTES % (AUTO) 32 % (12-44); MEAN CORPUSCULAR HEMOGLOBIN 28 PG (25-34); MEAN CORPUSCULAR HGB CONC 33 G/DL (32-36); MEAN CORPUSCULAR VOLUME 86 FL (80-99); MEAN PLATELET VOLUME 10.2 FL (7.4-10.4); MONOCYTES # (AUTO) 1.3 X 10^3 (0.0-1.0); MONOCYTES % (AUTO) 9 % (0-12); NEUTROPHILS # (AUTO) 8.6 X 10^3 (1.8-7.8); NEUTROPHILS % (AUTO) 58 % (42-75); PLATELET COUNT 392 10^3/uL (130-400); RED CELL DISTRIBUTION WIDTH 16.3 % (10.0-14.5); WHITE BLOOD COUNT 14.8 10^3/uL (4.3-11.0)
[2018-09-29 21:22] LABS: BACTERIA,URINE NEGATIVE /HPF; SQUAMOUS EPITHELIAL CELL,UR 0-2 /HPF
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
[2018-09-29] MEDS ORDERED: AZITHROMYCIN 250 MG TAB (ZITHROMAX) PO STA (21:37)
[2018-09-29] MEDS ORDERED: metroNIDAZOLE 500 MG (FLAGYL) TAB PO STA (21:37)
[2018-09-29 21:41] LABS: EOSINOPHILS % (MANUAL) 4 %; LYMPHOCYTES % (MANUAL) 37 %; MONOCYTES % (MANUAL) 6 %; NEUTROPHILS % (MANUAL) 53 %; RBC MORPH NORMAL
[2018-09-29] MEDS ORDERED: LIDOCAINE 1% INJ 20 ML 20 ML VIAL INJ ONE (21:45)
[2018-09-29] MEDS ORDERED: cefTRIAXone 250 MG/ML vial (IM ONLY) IM ONE (21:45)
[2018-09-29] MEDS ORDERED: METR-145 PO (21:54)
[2018-09-29 22:25] VITALS: BP 125/71
== END 2018-09-29 22:29 | disposition home or self-care (01) ==
LOC: EDUNIT# 20:19 → ER 20:20
DX: O23.511 Infections of cervix in pregnancy, first trimester (principal); O16.1 Unspecified maternal hypertension, first trimester; O99.331 Smoking (tobacco) complicating pregnancy, first trimester; F17.210 Nicotine dependence, cigarettes, uncomplicated; Z88.2 Allergy status to sulfonamides; Z87.448 Personal history of other diseases of urinary system; Z88.8 Allergy status to other drugs, medicaments and biological substances; Z93.3 Colostomy status; Z98.890 Other specified postprocedural states; Z3A.01 Less than 8 weeks gestation of pregnancy
CPT/HCPCS: 36415; 81000; 84702; 85007; 85027; 87210; 87491; 87591; 99284

== ENCOUNTER 2018-10-29 03:06 | Emergency (ER) | payer MEDICAID, OTHER ==
[~2018-10-29] VITALS: Ht 160 cm; Wt 77.1 kg
[~2018-10-29 03:06] MED LIST changes: +METR-145 PO
--- OUTSIDE RECORDS SUMMARY | 2018-10-29 03:14 | XMS REPORT | Continuity of Care Document ---
Author Organization Unknown Address Unknown Allergies Active Description Code Type Severity Reaction Onset Reported/Identified Relationship to Patient Clinical Status Yes sulfamethoxazole [id number] Drug Allergy Mild N/A 12/24/2008 Yes trimethoprim [id number] Drug Allergy Mild N/A 12/24/2008 Yes DARVOCET [...] DO Ot 788.1 DYSURIA 06/12/2013 KARMA MORA SALES EXHIBITOR Ot 465.9 ACUTE URI NOS 06/12/2013 KARMA MORA SALES EXHIBITOR Ot 786.2 COUGH 05/30/2015 Ot 626.0 05/30/2015 KARMA MORA SALES EXHIBITOR Ot N72 INFLAMMATORY DISEASE OF CERVIX UTERI 05/30/2015 Ot 626.0 10/29/2015 Ot 626.0 ABSENCE OF MENSTRUATION 10/29/2015 RASHEEDA STUART Ot K04.7 PERIAPICAL ABSCESS WITHOUT [...] SPECIFIED ACUTE OR CH 03/12/2016 KARMA MORA SALES EXHIBITOR Ot R21 RASH AND OTHER NONSPECIFIC SKIN [...] NICOTINE DEPENDENCE, CIGARETTES, UNCOMPL 03/17/2016 KARMA MORA SALES EXHIBITOR Ot J02.9 ACUTE PHARYNGITIS, UNSPECIFIED 03/17/2016 KARMA MORA SALES EXHIBITOR Ot J40 BRONCHITIS, NOT SPECIFIED ACUTE OR CH 03/17/2016 KARMA MORA SALES EXHIBITOR Ot R21 RASH AND OTHER NONSPECIFIC SKIN [...] OF URINARY (TRACT) INFE 05/24/2018 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 Ot N63.13 UNSPECIFIED LUMP IN THE RIGHT BREAST, LO 08/11/2018 ELVIN MARIE Ot F17.210 NICOTINE DEPENDENCE, CIGARETTES, UNCOMPL 08/11/2018 MARIE OCONNOR Ot N39.0 URINARY TRACT INFECTION, SITE NOT SPECIF 08/11/2018 MARIE OCONNOR Ot R10.2 PELVIC AND PERINEAL PAIN 08/11/2018 MARIE OCONNOR Ot Z77.22 CNTCT W AND EXPSR TO ENVIRON TOBACCO SMO 08/11/2018 MARIE OCONNOR Ot Z87.19 PERSONAL HISTORY OF OTHER DISEASES OF TH 08/11/2018 MARIE OCONNOR Ot Z87.448 PERSONAL HISTORY OF OTHER DISEASES OF UR 08/11/2018 MARIE OCONNOR Ot Z88.2 ALLERGY STATUS TO SULFONAMIDES STATUS 08/11/2018 MARIE OCONNOR Ot Z88.6 ALLERGY STATUS TO ANALGESIC AGENT STATUS 08/11/2018 MARIE OCONNOR Ot Z88.8 ALLERGY STATUS TO OTH DRUG/MEDS/BIOL SUB 08/11/2018 MARIE OCONNOR Ot Z93.3 COLOSTOMY STATUS 08/11/2018 MARIE OCONNOR Ot Z98.890 OTHER SPECIFIED POSTPROCEDURAL STATES 10/02/2018 KATT ESPINOSA MD Ot F17.210 NICOTINE DEPENDENCE, CIGARETTES, UNCOMPL 10/02/2018 KATT ESPINOSA MD Ot N89.8 OTHER SPECIFIED NONINFLAMMATORY DISORDER 10/02/2018 KATT ESPINOSA MD Ot O16.1 UNSPECIFIED MATERNAL HYPERTENSION, FIRST 10/02/2018 KATT ESPINOSA MD Ot O23.511 INFECTIONS OF CERVIX IN , FIRST 10/02/2018 KATT ESPINOSA MD Ot O99.331 SMOKING (TOBACCO) COMPLICATING 10/02/2018 KATT ESPINOSA MD Ot Z3A.01 LESS THAN 8 WEEKS GESTATION OF 10/02/2018 KATT ESPINOSA MD Ot Z87.448 PERSONAL HISTORY OF OTHER DISEASES OF UR 10/02/2018 KATT ESPINOSA MD Ot Z88.2 ALLERGY STATUS TO SULFONAMIDES STATUS 10/02/2018 KATT ESPINOSA MD Ot Z88.8 ALLERGY STATUS TO OTH DRUG/MEDS/BIOL SUB 10/02/2018 KATT ESPINOSA MD Ot Z93.3 COLOSTOMY STATUS 10/02/2018 KATT ESPINOSA MD Ot Z98.890 OTHER SPECIFIED POSTPROCEDURAL STATES Procedures [...] group - 05/11/17 19:30 ABO+Rh group OP NR Transfusion band number [id number] BANNER Blood manual differential performed detection - 05/11/17 19:30 Blood monocytes/100 leukocytes 4 % NR Manual blood segmented neutrophils/100 leukocytes 58 % NR Blood band neutrophils/100 leukocytes 0 % NRG Manual blood lymphocytes/100 leukocytes 38 % NRG Manual eosinophils/100 leukocytes in nose 0 % NR Manual blood basophils/100 leukocytes 0 % NR Blood erythrocyte morphology finding identification NORMAL BANNER Comprehensive metabolic panel - 05/11/17 19:30 Serum [...] 19:30 Serum or plasma choriogonadotropin measurement (units/volume) 44646 m[iU]/mL <5 Complete urinalysis with reflex to [...] - 08/11/18 21:05 Lipase 21 U/L 8-78 Complete urinalysis with reflex to culture - 09/29/18 20:45 Urine color determination YELLOW NRG Urine clarity [...] count by microscopy (number/high power field ) NONE NRG Bacteria detection in urine sediment by light microscopy NEGATIVE NRG Squamous epithelial cells detection in urine sediment by light microscopy 0-2 NRG Crystals detection in urine sediment by light microscopy NONE NRG Casts detection in urine sediment by light microscopy NONE NRG Mucus detection in urine sediment by light microscopy NEGATIVE NRG Complete urinalysis with reflex to culture NO NRG Chlamydia DNA amp probe, urine - 09/29/18 20:45 Chlamydia DNA amp probe, urine Not Detected Not Detected Urine Neisseria gonorrhoeae DNA assay - 09/29/18 20:45 Gonorrhea amp DNA-urine Not Detected Not Detected Complete blood count (CBC) with automated white blood cell (WBC) differential - 09/29/18 21:07 Blood leukocytes automated count (number/volume) 14.8 10*3/uL 4.3-11.0 Blood erythrocytes automated count (number/volume) 4.55 10*6/uL 4.35-5.85 Venous blood hemoglobin measurement (mass/volume) 12.9 g/dL 11.5-16.0 Blood hematocrit (volume fraction) 39 % 35-52 Automated erythrocyte mean corpuscular volume 86 [foz_us] 80-99 Automated erythrocyte mean corpuscular hemoglobin (mass per erythrocyte) 28 pg 25-34 Automated erythrocyte mean corpuscular hemoglobin concentration measurement ( mass/volume) 33 g/dL 32-36 Automated erythrocyte distribution width ratio 16.3 % 10.0-14.5 Automated blood platelet count (count/volume) 392 10*3/uL 130-400 Automated blood platelet mean volume measurement 10.2 [foz_us] 7.4-10.4 Automated blood neutrophils/100 leukocytes 58 % 42-75 Automated blood lymphocytes/100 leukocytes 32 % 12-44 Blood monocytes/100 leukocytes 9 % 0-12 Automated blood eosinophils/100 leukocytes 2 % 0-10 Automated blood basophils/100 leukocytes 0 % 0-10 Blood neutrophils automated count (number/volume) 8.6 10*3 1.8-7.8 Blood lymphocytes automated count (number/volume) 4.7 10*3 1.0-4.0 Blood monocytes automated count (number/volume) 1.3 10*3 0.0-1.0 Automated eosinophil count 0.2 10*3/uL 0.0-0.3 Automated blood basophil count (count/volume) 0.0 10*3/uL 0.0-0.1 Blood manual differential performed detection - 09/29/18 21:07 Blood monocytes/100 leukocytes 6 % NRG Manual blood segmented neutrophils/100 leukocytes 53 % NRG Manual blood lymphocytes/100 leukocytes 37 % NRG Manual eosinophils/100 leukocytes in nose 4 % NRG Blood erythrocyte morphology finding identification NORMAL NRG Serum or plasma choriogonadotropin measurement (units/volume) - 09/29/18 21:07 Serum or plasma choriogonadotropin measurement (units/volume) 6202 m [iU]/mL <5 Microscopic examination by wet preparation - 09/29/18 21:28 WET PREP RESULTS 09/29 21:45 BY TL NRG HCG, QUANTITATIVE - 10/02/18 11:16 [place] [address] mIU/mL NRG HCG, QUANTITATIVE - 10/04/18 11:00 [place], [place] [address] mIU/mL NRG HCG, QUANTITATIVE - 10/05/18 13:26 H[place], [place] [address] mIU/mL NRG HCG, QUANTITATIVE - 10/09/18 10:30 [place] [address] mIU/mL NRG HCG, QUANTITATIVE - 10/11/18 10:14 [place] [address] mIU/mL NRG Encounters ACCT No. Visit Date/Time Discharge Status Pt. Type Provider Facility Loc./Unit Complaint [id number] 10/11/2018 10:00:00 10/11/2018 23:59:59 CLS Outpatient KYLIE MEHUL [facility] [id number] 10/11/2018 10:00:00 Document Registration [id number] 10/09/2018 10:15:00 Document Registration [id number] 10/05/2018 13:15:00 Document Registration [id number] 10/04/2018 10:00:00 Document Registration [id number] 10/02/2018 10:30:00 Document Registration [id number] 09/29/2018 20:20:00 09/29/2018 22:29:00 DIS Outpatient JESÚS COLEMAN, KATT Wray [facility] ER ABD CRAMPING,VAG DISCHARGE;5 WKS PREG [id number] 08/11/2018 19:52:00 08/11/2018 22:34:00 DIS Emergency MARIE OCONNOR [facility] ER NAUSEA, STOAMCH PAINS, PELVIC PAIN W MOVEMENT [id number] 05/18/2018 14:25:00 05/18/2018 23:59:59 [facility] Outpatient MEHUL ESPINAL [facility] RAD R BREAST PAIN, MASS 6 O'CLOCK [id number] 07/02/2017 23:19:00 07/03/2017 01:34:00 DIS Emergency KATT ESPINOSA MD [facility] ER HEADACHE [id number] 05/11/2017 18:34:00 05/11/2017 20:22:00 DIS Emergency MICHAEL BLACK MD [facility] ER CRAMPING;6 WKS ; SPOTTING [id number] 03/11/2016 16:19:00 03/11/2016 16:51:00 DIS Emergency KARMA MORA APRN [facility] ER THROAT;COUGH;HEADACHE [id number] 01/01/2016 21:24:00 01/01/2016 22:08:00 DIS Emergency TONIE DAY DO [facility] ER [id number] 10/29/2015 18:29:00 10/29/2015 19:26:00 DIS Emergency RASHEEDA STUART [facility] ER [id number] 05/30/2015 17:37:00 05/30/2015 20:30:00 DIS Emergency KARMA MORA APRN [facility] ER [id number] 06/12/2013 14:37:00 06/12/2013 16:12:00 DIS Emergency KARMA MORA APRN [facility] ER [id number] 10/29/2012 14:14:00 10/29/2012 15:08:00 DIS Emergency JUAN ESCOBEDO DO [facility] ER [id number] 10/29/2018 03:08:00 ACT Emergency KATT ESPINOSA MD [facility] ER BLEEDING/ 8 WKS. [id number] 04/29/2012 13:58:00 Document Registration [id number] 11/19/2011 22:29:00 Document Registration [id number] 09/01/2011 14:27:00 Document Registration [id number] 08/10/2011 13:06:00 Document Registration [id number] 12/26/2010 19:57:00 Document Registration
[2018-10-29 03:47] LABS: BASOPHILS % (AUTO) 0 % (0-10); EOSINOPHILS # (AUTO) 0.2 10^3/uL (0.0-0.3); EOSINOPHILS % (AUTO) 2 % (0-10); HEMATOCRIT 40 % (35-52); HEMOGLOBIN 13.4 G/DL (11.5-16.0); LYMPHOCYTES # (AUTO) 3.8 X 10^3 (1.0-4.0); LYMPHOCYTES % (AUTO) 27 % (12-44); MEAN CORPUSCULAR HEMOGLOBIN 29 PG (25-34); MEAN CORPUSCULAR HGB CONC 34 G/DL (32-36); MEAN CORPUSCULAR VOLUME 85 FL (80-99); MEAN PLATELET VOLUME 10.1 FL (7.4-10.4); MONOCYTES # (AUTO) 1.3 X 10^3 (0.0-1.0); MONOCYTES % (AUTO) 9 % (0-12); NEUTROPHILS # (AUTO) 8.9 X 10^3 (1.8-7.8); NEUTROPHILS % (AUTO) 62 % (42-75); PLATELET COUNT 372 10^3/uL (130-400); RED CELL DISTRIBUTION WIDTH 16.4 % (10.0-14.5); WHITE BLOOD COUNT 14.3 10^3/uL (4.3-11.0)
[2018-10-29 04:15] LABS: CARBON DIOXIDE 18 MMOL/L (21-32); CHLORIDE 107 MMOL/L (98-107); CREATININE SERUM 0.69 MG/DL (0.60-1.30); POTASSIUM 3.6 MMOL/L (3.6-5.0); SODIUM 137 MMOL/L (135-145)
[2018-10-29 04:16] LABS: ALANINE AMINOTRANSFERASE 14 U/L (0-55); ALBUMIN 4.2 GM/DL (3.2-4.5); ALKALINE PHOSPHATASE 63 U/L (40-136); BILIRUBIN,TOTAL 0.2 MG/DL (0.1-1.0); BUN/CREATININE RATIO 12; CALCIUM 11.2 MG/DL (8.5-10.1); GFR ESTIMATED > 60; GLUCOSE 116 MG/DL (70-105); TOTAL PROTEIN 6.9 GM/DL (6.4-8.2)
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
[2018-10-29 04:45] VITALS: BP 110/75
[2018-10-29 04:50] LABS: LYMPHOCYTES % (MANUAL) 32 %; NEUTROPHILS % (MANUAL) 58 %
[2018-10-29 04:51] LABS: EOSINOPHILS % (MANUAL) 1 %; MONOCYTES % (MANUAL) 9 %
== END 2018-10-29 04:45 | disposition home or self-care (01) ==
LOC: EDUNIT# 03:06 → ER 03:08
DX: O20.0 Threatened abortion (principal); O16.1 Unspecified maternal hypertension, first trimester; O99.332 Smoking (tobacco) complicating pregnancy, second trimester; F17.210 Nicotine dependence, cigarettes, uncomplicated; Z98.890 Other specified postprocedural states; Z87.448 Personal history of other diseases of urinary system; Z93.3 Colostomy status; Z88.2 Allergy status to sulfonamides; Z88.8 Allergy status to other drugs, medicaments and biological substances; Z3A.08 8 weeks gestation of pregnancy
CPT/HCPCS: 36415; 80053; 84702; 85007; 85027

== ENCOUNTER 2019-02-09 09:57 | Outpatient (CLI) | payer MEDICAID ==
[~2019-02-09] VITALS: Ht 162.6 cm; Wt 88.7 kg
--- NOTE | 2019-02-09 10:05 | NUR ---
AIJESSICA CASTAÑEDA Luz presented to unit via AMBULATORY from ED, accompanied by FAMILY, with c/o LOWER BACK/SIDE PAIN/CRAMPING. JESSICA TOBIAS weighed, gowned, voided, and to bed. EFHM and TOCO applied, VS taken. AIJESSICA CASTAÑEDA oriented to bed controls, call light, TV, heat, and A/C controls.
--- NOTE | 2019-02-09 10:18 | NUR ---
EFM and TOCO applied. pt reports c/o lower back pain that radiates to Rt.abd since 429 this a.m. states constant. "pressure like need to have BM." rates @ 5 on 1-10 scale. denies urinary sx's, vaginal bleeding or leaking fluid. reports decreased FM.
[2019-02-09 10:20] VITALS: BP 117/63
[2019-02-09 10:28] LABS: BILIRUBIN,URINE NEGATIVE (NEGATIVE); CLARITY,URINE SLIGHTLY CLOUDY; COLOR,URINE YELLOW; GLUCOSE, URINE (UA) NEGATIVE (NEGATIVE); KETONES,URINE 1+ (NEGATIVE); LEUKOCYTE ESTERASE ,URINE 1+ (NEGATIVE); NITRITE,URINE NEGATIVE (NEGATIVE); PH,URINE 6 (5-9); PROTEIN,URINE 2+ (NEGATIVE); UROBILINOGEN,URINE NORMAL (NORMAL)
[2019-02-09 10:51] LABS: BACTERIA,URINE TRACE /HPF; CALCIUM OXALATE CRYSTALS,UR MODERATE /LPF; RBC,URINE TNTC /HPF; SQUAMOUS EPITHELIAL CELL,UR RARE /HPF; WBC,URINE RARE /HPF
--- NOTE | 2019-02-09 10:59 | NUR ---
was called r/t pt's admit c/o's. UA results, monitor tracing and vs reviewed. new orders received.
[2019-02-09] MEDS ORDERED: ceFAZolin 2 GM/50 ML NS 50 ML IV ONE (11:00)
[2019-02-09] MEDS: LACTATED RINGERS 1,000 ML IV SCH ×2 (11:12→12:22)
[2019-02-09] MEDS ORDERED: LABE200T7 PO (12:32)
[2019-02-09] MEDS ORDERED: NITR-65 PO (12:33)
[2019-02-09] MEDS ORDERED: ACET-789 PO (12:41)
[2019-02-09] MEDS ORDERED: CYCL10TA9 PO (12:41)
--- NOTE | 2019-02-09 12:54 | NUR ---
dismissal instructions given, verbalizes understanding. reviewed Rx's and administration schedule.instructed to finish Macrobid and increase oral intake. instructed pt to follow up as scheduled or prn. signature page signed and placed on chart.
--- NOTE | 2019-02-09 13:21 | NUR ---
IV site alejandro.
--- NOTE | 2019-02-09 13:25 | NUR ---
pt ambulated to private vehicle with family members @ side. pt stable with no sx's of distress noted.
--- NOTE | 2019-02-12 12:07 | Physician Query-Final Dx ---
RIAN BUSTAMANTE 02/12/19 1207: Clinic Account Progress/Dx Physician Query: Please give diagnosis Need dx and weeks of gestation. Date of Service Feb 09, 2019 at 09:57 LISA VASQUEZ DO 02/14/19 0913: Clinic Account Progress/Dx Physician Query: Please give diagnosis (Intrauterine at 22 weeks 2. Pelvic Pain 3. Headache) DIAGNOSIS: Diagnosis Intrauterine at 22 weeks 2. Pelvic Pain 3. Headache Progress Note: Patient admitted and treated, then released with instructions and follow up appointment. RIAN BUSTAMANTE Feb 12, 2019 12:07 LISA VASQUEZ DO Feb 14, 2019 09:13
== END 2019-02-09 13:25 | disposition home or self-care (01) ==
LOC: WSo 09:57 → LDRP 09:58 → WSo 13:25
PROVIDERS: ATTEND Obstetrics & Gynecology
DX: O99.89 Other specified diseases and conditions complicating pregnancy, childbirth and the puerperium (principal); R10.2 Pelvic and perineal pain; R51 Headache; Z3A.22 22 weeks gestation of pregnancy
CPT/HCPCS: 81000; 87088; 96361; 96374; 99213

== ENCOUNTER 2019-04-29 02:37 | Outpatient (CLI) | payer MEDICAID ==
[~2019-04-29] VITALS: Ht 160 cm; Wt 99.4 kg
[~2019-04-29 02:37] MED LIST changes: +ACET-789 PO; +CYCL10TA9 PO; +LABE200T7 PO
[2019-04-29] MEDS ORDERED: OMEP10SU2 PO (02:48)
--- NOTE | 2019-04-29 02:48 | NUR ---
JESSICA TOBIAS presented to unit via WC from ED, accompanied by SO , with c/o BACK PAIN. JESSICA TOBIAS weighed, gowned, voided, and to bed. EFHM and TOCO applied, VS taken. JESSICA TOBIAS oriented to bed controls, call light, TV, heat, and A/C controls.
[2019-04-29 03:00] VITALS: BP 164/95
[2019-04-29 03:17] LABS: BILIRUBIN,URINE NEGATIVE (NEGATIVE); CLARITY,URINE CLEAR; COLOR,URINE YELLOW; GLUCOSE, URINE (UA) NEGATIVE (NEGATIVE); KETONES,URINE NEGATIVE (NEGATIVE); LEUKOCYTE ESTERASE ,URINE NEGATIVE (NEGATIVE); NITRITE,URINE NEGATIVE (NEGATIVE); PROTEIN,URINE TRACE (NEGATIVE)
[2019-04-29 03:30] VITALS: BP 150/79
[2019-04-29 03:35] LABS: BACTERIA,URINE MODERATE /HPF; SQUAMOUS EPITHELIAL CELL,UR 0-2 /HPF
--- NOTE | 2019-04-29 03:36 | NUR ---
called with complaint, u/a results, vs and tracing. new orders received.
[2019-04-29] MEDS ORDERED: LACTATED RINGERS 1,000 ML IV ONE (03:38)
[2019-04-29] MEDS ORDERED: fentaNYL INJECTION 100 MCG/2 ML AMP ONE (03:38)
[2019-04-29] MEDS ORDERED: ONDANSETRON 4 MG/2 ML (SDV) Z0FRAN ONE (03:38)
[2019-04-29 03:45] VITALS: BP 153/80
[2019-04-29] MEDS ORDERED: LACTATED RINGERS 1,000 ML IV SCH ×2 (03:45→05:30)
[2019-04-29] MEDS ORDERED: fentaNYL INJECTION 100 MCG/2 ML AMP IVP ONE ×2 (03:45→05:30)
[2019-04-29] MEDS ORDERED: ONDANSETRON 4 MG/2 ML (SDV) Z0FRAN IVP PRN (03:45)
[2019-04-29 04:07] VITALS: BP 164/95
--- NOTE | 2019-04-29 05:08 | NUR ---
updated on vital signs, exam, and tracing. Discharge order received.
[2019-04-29 05:15] VITALS: BP 159/92
[2019-04-29 08:30] VITALS: BP 173/89
--- NOTE | 2019-04-29 08:51 | NUR ---
Dr. Ba updated on patient's status. New orders received.
--- NOTE | 2019-04-29 10:17 | NUR ---
Discharge instructions reviewed with patient both written and verbally. Patient verbalizes understanding and questions answered.
--- NOTE | 2019-04-29 10:27 | NUR ---
Patient discharged at this time via wheelchair and accompanied down to awaiting private vehicle accompanied by this RN. No signs or symptoms of distress noted.
--- NOTE | 2019-04-30 09:48 | Physician Query-Final Dx ---
MATT العراقي 04/30/19 0948: Clinic Account Progress/Dx Physician Query: Please give diagnosis Please include # weeks gestation Date of Service Apr 29, 2019 at 02:37 LISA VASQUEZ DO 05/01/19 0618: Clinic Account Progress/Dx Physician Query: Please give diagnosis (Intrauterine at 35 4/7 weeks 2. Back Pain 3. Hematuria 4. History of Nephrolithiasis 5. Previous ) DIAGNOSIS: Diagnosis Intrauterine at 35 4/7 weeks 2. Back Pain 3. Hematuria 4. History of Nephrolithiasis 5. Previous MATT العراقي Apr 30, 2019 09:48 LISA PINEDA DO May 01, 2019 06:18 POS
== END 2019-04-29 10:27 | disposition home or self-care (01) ==
LOC: WSo 02:37 → LDRP 02:38 → WSo 10:27
PROVIDERS: ATTEND Obstetrics & Gynecology
DX: M54.9 Dorsalgia, unspecified (principal)
CPT/HCPCS: 81000; 87088; 96361; 96374; 96375; 96376; 99213

== ENCOUNTER 2019-05-14 11:46 | Inpatient (IN) | payer MEDICAID ==
[2019-05-14] VITALS (13 sets, daily range): BP systolic 141–182; BP diastolic 74–95
[~2019-05-14] VITALS: Ht 160 cm; Wt 100.1 kg
--- NOTE | 2019-05-14 11:36 | NUR ---
JESSICA TOBIAS presented to unit via ambulation, accompanied by s/o, for repeat c/s. Pt.weighed, gowned, voided, and to bed. EFHM and TOCO applied, VS taken. Pt. oriented to bed controls, call light, TV, heat, and A/C controls.
--- NOTE | 2019-05-14 11:45 | NUR ---
admission paperwork completed.
[~2019-05-14 11:46] MED LIST changes: +OMEP10SU2 PO
[2019-05-14] MEDS ORDERED: METOCLOPRAMIDE INJ 10 MG/2 ML (REGLAN) IV ONE (12:00)
[2019-05-14] MEDS ORDERED: CITRIC ACID/SOB CIT (BICITRA) 30 ML UDC PO ONE (12:00)
[2019-05-14] MEDS ORDERED: FAMOTIDINE 20MG/2ML IV (PEPCID) IV ONE (12:00)
[2019-05-14] MEDS ORDERED: CATHETER FLUSH 10 ML SYR IV PRN (12:00)
--- NOTE | 2019-05-14 12:04 | NUR ---
consent signed and placed on chart.
[2019-05-14] MEDS: LACTATED RINGERS 1,000 ML IV PRN ×3 (12:20→15:30)
--- NOTE | 2019-05-14 12:20 | NUR ---
#20g IV to Lt.FA x1 attempt by SIA Dumont. site patent. admission labs collected from site prior to IVF's infusing.
[2019-05-14 12:41] LABS: BASOPHILS % (AUTO) 0 % (0-10); EOSINOPHILS # (AUTO) 0.1 10^3/uL (0.0-0.3); EOSINOPHILS % (AUTO) 1 % (0-10); HEMATOCRIT 32 % (35-52); HEMOGLOBIN 9.9 G/DL (11.5-16.0); LYMPHOCYTES # (AUTO) 2.3 X 10^3 (1.0-4.0); LYMPHOCYTES % (AUTO) 22 % (12-44); MEAN CORPUSCULAR HEMOGLOBIN 23 PG (25-34); MEAN CORPUSCULAR HGB CONC 31 G/DL (32-36); MEAN CORPUSCULAR VOLUME 76 FL (80-99); MEAN PLATELET VOLUME 11.1 FL (7.4-10.4); MONOCYTES % (AUTO) 9 % (0-12); NEUTROPHILS # (AUTO) 6.9 X 10^3 (1.8-7.8); NEUTROPHILS % (AUTO) 67 % (42-75); PLATELET COUNT 447 10^3/uL (130-400); RED CELL DISTRIBUTION WIDTH 15.9 % (10.0-14.5); WHITE BLOOD COUNT 10.3 10^3/uL (4.3-11.0)
[2019-05-14] MEDS ORDERED: METOCLOPRAMIDE INJ 10 MG/2 ML (REGLAN) ONE (14:45)
[2019-05-14] MEDS ORDERED: CITRIC ACID/SOB CIT (BICITRA) 30 ML UDC ONE (14:45)
[2019-05-14] MEDS ORDERED: FAMOTIDINE 20MG/2ML IV (PEPCID) ONE (14:45)
[2019-05-14] MEDS ORDERED: fentaNYL INJECTION 100 MCG/2 ML AMP ONE (15:10)
[2019-05-14] MEDS ORDERED: OXYTOCIN/NORMAL SALINE 1,000 ML IV ONE (15:13)
[2019-05-14] MEDS ORDERED: ROPIVACAINE 5MG/ML 30ML VIAL ONE (15:14)
[2019-05-14] MEDS ORDERED: ceFAZolin 2 GM IV Premixed 50 ML ONE (15:47)
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
--- NOTE | 2019-05-14 17:05 | NUR ---
Toñito Stover [employer] COMP[employer] not pt b/p 141/92.
[2019-05-14] MEDS ORDERED: OXYTOCIN/NORMAL SALINE 500 ML IV SCH (17:10)
--- NOTE | 2019-05-14 17:10 | Operative Report ---
Operative Report Date of Procedure/Surgery May 14, 2019 Surgeon (s) LISA VASQUEZ DO [employer] Instructor (s): None Post-Operative Diagnosis Intrauterine at 37 5/7 weeks 2. Gestational Hypertension (uncontrolled) 3. Previous Procedure Performed Repeat Low Transverse Description of Procedure Anesthesia Type: Spinal Estimated blood loss (mL): 600 ml Specimen(s) collected/removed Placenta and previous skin scar Description of the Procedure Ms. Castro was taken to the Operating Room with IV fluids running. Once in the OR Spinal Anesthesia was administered without difficulty. She was placed in the supine position with a leftward tilt. A Romo catheter was placed. She was then prepped and draped in the normal sterile fashion. An elliptical incision was made over the previous skin incision with the old incision being removed. The incision was then carried down to the layer of the fascia. The fascia was nicked in the midline, extended bilaterally. The fascia was elevated and the rectus muscle dissected off sharply. The rectus muscle was in the midline. The parietal peritoneum identified, entered sharply, and extended superiorly and inferiorly with good visualization of the bladder. The vesicouterine peritoneum was identified, entered sharply and extended b ilaterally. The bladder flap was created digitally. The bladder blade was inserted at that time. With a scalpel, a transverse incision was made on the lower uterine segment, extended bilaterally. The membranes were ruptured, clear fluid was noted. The vertex was delivered in a DAVE position. Orally and nasally suctioned immediately. A viable male infant was delivered without complications. The cord was doubly clamped and cut. [place] handed off to the waiting Pediatric Caregiver where NRP protocol was followed. Cord blood was obtained. The placenta was manually extracted. The uterus was exteriorized, cleared of clots and debris. The uterus was then repaired with a 0-Vicryl in a running locked fashion. Utilizing the same type suture an imbricating layer was placed in the uterus. The vesicouterine peritoneum was closed with 3-0 Vicryl in a running manner. The uterus was returned to the pelvic cavity. The gutters were cleared of clots and debris. The parietal peritoneum was closed with 3-0 Vicryl. The fascia was approximated wth 0-Vicryl in a running fashion. The subcutaneous tissues were approximated with 3-0 Plain Gut. The skin was closed in a subcuticular manner with 4-0 Monocryl. Sponge, instrument, and needle counts were correct x 3. Both mom and was stable. Findings of the Procedure Viable male , DAVE, 8, 9. Weight 8 lb 11 oz. Urine 125 ml. EBL 600 ml. Allergies and Home Medications Allergies Coded Allergies: sulfamethoxazole (Unverified Allergy, Mild, 12/24/08) trimethoprim (Unverified Allergy, Mild, 12/24/08) Uncoded Allergies: DARVOCET (Allergy, Severe, HIVES, 08/11/18) Home Medications Acetaminophen with Codeine 1 Each Tablet, 1 EACH PO Q4H, (Reported) Labetalol HCl 200 Mg Tablet, 200 MG PO BID, (Reported) Omeprazole Magnesium 10 Mg Suspdr.pkt, 10 MG PO DAILY, (Reported) Patient Home Medication List Home Medication List Reviewed: Yes LISA VASQUEZ DO May 14, 2019 17:10 POS
[2019-05-14] MEDS ORDERED: HYDROmorphone 2 MG/ML VIAL (DILAUDID) IV ONE (17:15)
[2019-05-14] MEDS ORDERED: TETANUS,DIPTH,PERTUSS P/F (BOOSTRIX) 0.5 ML VIAL IM SCH (17:15)
[2019-05-14] MEDS ORDERED: MEASLES,MUMPS,RUBELLA 1 EA INJ SC SCH (17:15)
[2019-05-14] MEDS ORDERED: fentaNYL INJECTION 100 MCG/2 ML AMP IVP PRN (17:15)
[2019-05-14] MEDS ORDERED: ONDANSETRON 4 MG/2 ML (SDV) Z0FRAN IVP PRN ×2 (17:15)
--- NOTE | 2019-05-14 18:00 | NUR ---
PACU wallace output 650ml of clear yellow urine.
[2019-05-14] MEDS: KETOROLAC 30 MG/ML VIAL IV SCH (19:01)
[2019-05-14] MEDS: METOCLOPRAMIDE 10 MG (REGLAN) TAB PO SCH (19:01)
[2019-05-14] MEDS: ACETAMINOPHEN 500 MG TAB (TYLENOL) PO SCH (19:02)
--- NOTE | 2019-05-14 19:12 | NUR ---
Notified Dr Ba of pt B/Ps 150-160's /upper 90's. "O" Labetalol 200mg po Q 6 HRS.
[2019-05-14] MEDS ORDERED: LABETALOL 200 MG (NORMODYNE) TAB PO ONE (19:18)
[2019-05-14] MEDS: LABETALOL 200 MG (NORMODYNE) TAB PO SCH (19:22)
[2019-05-14] MEDS: DOCUSATE SODIUM 100 MG (COLACE) CAP PO SCH (20:18)
[2019-05-15] VITALS (7 sets, daily range): BP systolic 126–153; BP diastolic 72–94
[2019-05-15] MEDS: KETOROLAC 30 MG/ML VIAL IV SCH ×3 (00:25→12:12)
[2019-05-15] MEDS: METOCLOPRAMIDE 10 MG (REGLAN) TAB PO SCH ×4 (00:26→18:15)
[2019-05-15] MEDS: CATHETER FLUSH 10 ML SYR IV SCH ×2 (00:26→06:50)
[2019-05-15] MEDS: LABETALOL 200 MG (NORMODYNE) TAB PO SCH ×4 (00:26→18:15)
[2019-05-15] MEDS: ACETAMINOPHEN 500 MG TAB (TYLENOL) PO SCH ×2 (01:43→10:24)
[2019-05-15] MEDS ORDERED: BISACODYL 10 MG SUPP (DULCOLAX) PR NR (05:00)
[2019-05-15] MEDS ORDERED: MILK OF MAGNESIA 400 MG/5 ML 30 ML UDC PO ONE (05:00)
[2019-05-15 05:56] LABS: BASOPHILS % (AUTO) 0 % (0-10); EOSINOPHILS # (AUTO) 0.2 10^3/uL (0.0-0.3); EOSINOPHILS % (AUTO) 1 % (0-10); HEMATOCRIT 30 % (35-52); HEMOGLOBIN 9.5 G/DL (11.5-16.0); LYMPHOCYTES # (AUTO) 2.3 X 10^3 (1.0-4.0); LYMPHOCYTES % (AUTO) 18 % (12-44); MEAN CORPUSCULAR HEMOGLOBIN 24 PG (25-34); MEAN CORPUSCULAR HGB CONC 32 G/DL (32-36); MEAN CORPUSCULAR VOLUME 75 FL (80-99); MEAN PLATELET VOLUME 10.6 FL (7.4-10.4); MONOCYTES # (AUTO) 1.3 X 10^3 (0.0-1.0); MONOCYTES % (AUTO) 10 % (0-12); NEUTROPHILS # (AUTO) 9.2 X 10^3 (1.8-7.8); NEUTROPHILS % (AUTO) 71 % (42-75); PLATELET COUNT 418 10^3/uL (130-400); RED CELL DISTRIBUTION WIDTH 16.3 % (10.0-14.5)
--- NOTE | 2019-05-15 07:45 | NUR ---
DR. VASQUEZ IN TO SEE PT. PLAN FOR DISCHARGE THIS EVENING.
[2019-05-15] MEDS ORDERED: DOCU100C37 PO (07:46)
[2019-05-15] MEDS ORDERED: IBUP-1780 PO (07:46)
[2019-05-15] MEDS ORDERED: OXC5T PO (07:46)
[2019-05-15] MEDS ORDERED: ACET-77 PO (07:46)
[2019-05-15] MEDS ORDERED: LABE200T7 PO (07:46)
--- NOTE | 2019-05-15 07:52 | Discharge Summary ---
Diagnosis/Chief Complaint Date of Admission May 14, 2019 at 11:46 Date of Discharge May 15, 2019 Discharge Date: May 15, 2019 Discharge Time: 17:00 Admission Diagnosis Admission Diagnosis Intrauterine at 37 5/7 weeks 2. Gestational Hypertension 3. Previous Discharge Diagnosis Intrauterine at 37 5/7 weeks 2. Gestational Hypertension 3. Previous Reason Hospital Visit Ms. Castro was admitted at 37 5/7 weeks for a Repeat secondary to uncontrolled hypertension despite being on antihypertensive medication. Discharge Summary Hospital Course Was the Problem List Reviewed?: Yes Hospital Course Ms. Castro at 37 5/7 weeks gestation was admitted for scheduled secondary to uncontrolled blood pressure despite being on an antihypertensive and absolute bedrest. The surgery was performed without complications. On the day of surgery, she was placed on IV and oral pain medications along with other comfort measures. The day was unremarkable. Postoperative Day #1, Ms. Castro was voiding freely, moving her bowels, tolerating a Regular Diet, ambulating and controlling her pain with oral medications. Her vital signs demonstrated an elevated blood pressure, but an antihypertensive was started. We will discharge her to home with instructions, prescriptions and a follow up appointment. Labs Laboratory Tests 05/14/19 12:05: Red Blood Count 4.25L, Hemoglobin 9.9L, Hematocrit 32L, Mean Corpuscular Volume 76L, Mean Corpuscular Hemoglobin 23L, Mean Corpuscular Hemoglobin Concent 31L, Red Cell Distribution Width 15.9H, Platelet Count 447H, Mean Platelet Volume 11.1H 05/15/19 05:30: Red Blood Count 4.00L, Hemoglobin 9.5L, Hematocrit 30L, Mean Corpuscular Volume 75L, Mean Corpuscular Hemoglobin 24L, Red Cell Distribution Width 16.3H, Platelet Count 418H, Mean Platelet Volume 10.6H, White Blood Count 13.0H, Neutrophils # (Auto) 9.2H, Monocytes # (Auto) 1.3H Procedures None. Discharge Physical Examination Allergies: Coded Allergies: sulfamethoxazole (Unverified Allergy, Mild, 12/24/08) trimethoprim (Unverified Allergy, Mild, 12/24/08) Uncoded Allergies: DARVOCET (Allergy, Severe, HIVES, 08/11/18) Vitals & I&Os Vital Signs Date Time Temp Pulse Resp B/P (MAP) Pulse Ox O2 Delivery O2 Flow Rate FiO2 05/15/19 04:00 36.4 83 16 142/86 (104) 96 Room Air General Appearance: Alert, Oriented X3, Cooperative HEENT: Atraumatic Respiratory: Clear to Auscultation, Normal Air Movement Cardiovascular: Regular Rate, No Murmurs Abdominal: Normal Bowel Sounds Extremities: No Clubbing, No Cyanosis Skin: No Rashes Neuro: Normal Gait, Normal Speech Psych/Mental Status: Mental Status NL Discharge Home Medications Reviewed and agree with Discharge Medication list on patient's Discharge Instruction sheet Instructions to Patient/Family Please see electronic discharge instructions given to patient. Clinical Quality Measures DVT/VTE Risk/Contraindication: Risk Factor Score Per Nursin RFS Level Per Nursing on Admit: 2=Moderate LISA VASQUEZ DO May 15, 2019 07:52 POS
--- NOTE | 2019-05-15 08:30 | NUR ---
PT SLEEPING AT THIS TIME.
--- NOTE | 2019-05-15 09:00 | NUR ---
A.M. ASSESSMENT COMPLETED. VSS. DOING WELL. STATES HAS HAD BM X2.
[2019-05-15] MEDS: DOCUSATE SODIUM 100 MG (COLACE) CAP PO SCH (10:24)
--- NOTE | 2019-05-15 11:01 | NUR ---
1100 MMR GIVEN SUBQ IN RIGHT UPPER ARM. SITE CLEAR. 1101 TDAP GIVEN IM IN LEFT DELTOID. SITE CLEAR.
--- NOTE | 2019-05-15 12:00 | NUR ---
CIRC CARE SHOWN TO PARENTS WITH RETURN DEMONSTRATION.
--- NOTE | 2019-05-15 14:00 | NUR ---
CARING FOR INFANT IN ROOM. GOOD INTERACTION NOTED.
--- NOTE | 2019-05-15 17:00 | NUR ---
DISCHARGE INSTRUCTIONS REVIEWED WITH COPY TO PT. RXS GIVEN. STATES UNDERSTANDING OF ALL INSTRUCTIONS AND NEED TO F/U SCHEDULED AND NEEDED.
[2019-05-15] MEDS ORDERED: IBUPROFEN 800 MG (MOTRIN) TAB PO SCH (17:30)
--- NOTE | 2019-05-15 18:15 | NUR ---
DISMISSED AMB FROM [facility] WITH INFANT IN STABLE CONDITION TO FAMILY CAR [facility] BY Trish AND Renny LIANG RN.
--- NOTE | 2019-05-17 07:07 | Anesthesia-Regional Post-Op ---
Regional Patient Condition Mental Status: Alert, Oriented x3 Circulation: Same as Pre-Op Headache: Absent Sensation: Full Recovery Motor Block: Absent Post Op Complications Complications None Follow Up Care/Instructions Patient Instructions None needed. Anesthesia/Patient Condition Patient is doing well, no complaints, stable vital signs, no apparent adverse anesthesia problems. No complications reported per nursing. D/C home per [facility] Criteria: Yes JUVENAL BOOTH CRNA May 17, 2019 07:07 POS
== END 2019-05-15 18:15 | disposition home or self-care (01) | DRG 788 ==
LOC: LDRP 11:46
PROVIDERS: ADMIT Obstetrics & Gynecology; ATTEND Obstetrics & Gynecology
PROC: 10D00Z1 Extraction of Products of Conception, Low, Open Approach (ICD-10-PCS; principal; 2019-05-14 15:46)
DX: O10.92 Unspecified pre-existing hypertension complicating childbirth (principal); O34.211 Maternal care for low transverse scar from previous cesarean delivery; Z37.0 Single live birth; Z3A.37 37 weeks gestation of pregnancy; Z23 Encounter for immunization
CPT/HCPCS: 36415; 85025; 86850; 86900; 86901; 90707; 90715; 94664

== ENCOUNTER → 2020-10-01 | Outpatient (CLI) | payer MEDICAID ==
[~2020-10-01] MED LIST changes: +ACET-78 PO; +DOCU100C37 PO; +IBUP-1780 PO; -LISI10TA2 PO; +LISI10TA25 PO; +OXC5T PO; -TRAM50TA2 PO; +TRM50T PO
--- NOTE | 2020-10-01 14:09 | Diagnostic Imaging Report ---
INDICATION: Anatomy survey. TECHNIQUE: Multiple real-time grayscale images were obtained over the gravid uterus. COMPARISON: None FINDINGS: CLINICAL DATES: Gestational age 20 weeks, 1 days, with an ALEXANDREA of 02/17/2021 Number: Single live intrauterine Presentation: Transverse Placenta: Anterior Amniotic Fluid: LINETTE is visually within normal limits. No measurements of the amniotic fluid were obtained. Biometrical measurements are as follows: Biparietal 4.99 cm, age 21 weeks 1 days. Head circumference 18.30 cm, age 20 weeks 5 days. Abdominal circumference 15.33 cm, age 20 weeks 4 days. Femur length 3.54 cm, age 21 weeks 2 days. Sonographic estimate age: 21 weeks 1 days. Sonographic estimated date of delivery: 02/11/21. Estimated Weight: 380 gm (+/- 56 gm). LMP percentile: 82%. heart rate: 158 beats per minute. number: 1 of 1. Cerebellum: visualized Lateral ventricles: visualized Cavum septum pellucidum: visualized Face: visualized Stomach: visualized Kidneys: Not well visualized Bladder: visualized Three vessel cord: visualized Cord insertion: visualized 4 chamber heart: visualized outflow tracts: visualized Spine, upper: Not well visualized Spine, lower: Not well visualized Upper extremities: visualized Lower extremities: visualized Hands: Not well-visualized Feet: Not well visualized The cervix measures 6.7 cm in length. The adnexa are unremarkable without evidence of mass or free fluid. IMPRESSION: 1. Single live intrauterine at approximately 21 weeks, 1 days, with an ALEXANDREA of 02/11/2021. These are within range clinical dates. 2. The kidneys, spine, and hands and feet are not well visualized due to position. The visualized anatomic structures have unremarkable appearance. Recommend continued follow-up as indicated. Dictated by: Dictated on workstation # [id number]
== END ==
LOC: RAD 13:00
PROVIDERS: ATTEND Obstetrics & Gynecology
DX: Z34.82 Encounter for supervision of other normal pregnancy, second trimester (principal); Z3A.20 20 weeks gestation of pregnancy
CPT/HCPCS: 76805

== ENCOUNTER 2023-01-02 21:41 | Emergency (ER) | payer SELFPAY ==
[~2023-01-02] VITALS: Ht 162.6 cm; Wt 91.0 kg
[~2023-01-02 21:41] MED LIST changes: +CYCL10TA25 PO; -CYCL10TA9 PO; +LABE200T10 PO; -LABE200T7 PO
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
[2023-01-02 22:42] LABS: BASOPHILS % (AUTO) 0 % (0-10); EOSINOPHILS # (AUTO) 0.2 10^3/uL (0.0-0.3); EOSINOPHILS % (AUTO) 2 % (0-10); HEMATOCRIT 43 % (35-52); HEMOGLOBIN 14.7 g/dL (11.5-16.0); LYMPHOCYTES % (AUTO) 32 % (12-44); MEAN CORPUSCULAR HEMOGLOBIN 31 pg (25-34); MEAN CORPUSCULAR HGB CONC 34 g/dL (32-36); MEAN CORPUSCULAR VOLUME 89 fL (80-99); MEAN PLATELET VOLUME 10.1 fL (9.0-12.2); MONOCYTES % (AUTO) 11 % (0-12); NEUTROPHILS % (AUTO) 54 % (42-75); PLATELET COUNT 269 10^3/uL (130-400); WHITE BLOOD COUNT 9.3 10^3/uL (4.3-11.0)
[2023-01-02 22:54] LABS: ALBUMIN 4.3 GM/DL (3.2-4.5); CHLORIDE 107 MMOL/L (98-107); POTASSIUM 3.4 MMOL/L (3.6-5.0); SODIUM 139 MMOL/L (135-145)
[2023-01-02 22:55] LABS: CALCIUM 10.6 MG/DL (8.5-10.1)
[2023-01-02 22:56] LABS: GLUCOSE 103 MG/DL (70-105); TOTAL PROTEIN 6.8 GM/DL (6.4-8.2)
[2023-01-02 22:57] LABS: CARBON DIOXIDE 22 MMOL/L (21-32)
[2023-01-02 22:58] LABS: BILIRUBIN,TOTAL 0.3 MG/DL (0.1-1.0)
[2023-01-02 23:00] LABS: ALKALINE PHOSPHATASE 81 U/L (40-136); CREATININE SERUM 0.71 MG/DL (0.60-1.30); GFR ESTIMATED 112
[2023-01-02 23:01] LABS: BUN/CREATININE RATIO 14
[2023-01-02 23:03] LABS: ALANINE AMINOTRANSFERASE 45 U/L (0-55)
[2023-01-02] MEDS ORDERED: KETOROLAC 15 MG/ML VIAL IVP ONE (23:15)
[2023-01-02 23:20] VITALS: BP 107/63
--- NOTE | 2023-01-03 08:17 | Diagnostic Imaging Report ---
INDICATION: Chest pain. COMPARISON: 06/12/2013. TECHNIQUE: Single radiograph of the chest dated 01/02/2023 FINDINGS: The cardiac silhouette is within normal limits in size. No significant pulmonary vascular congestion. The lungs are clear of focal pulmonary opacity. No pleural effusion. No pneumothorax. No acute osseous abnormality. IMPRESSION: Stable appearing examination without acute cardiopulmonary abnormality. Dictated by: Dictated on workstation # [id number]
== END 2023-01-02 23:24 | disposition home or self-care (01) ==
LOC: EDUNIT# 21:41 → ER 21:43
DX: R20.2 Paresthesia of skin (principal); R07.89 Other chest pain; I10 Essential (primary) hypertension; E78.00 Pure hypercholesterolemia, unspecified; E66.9 Obesity, unspecified; F17.210 Nicotine dependence, cigarettes, uncomplicated; Z68.39 Body mass index [BMI] 39.0-39.9, adult; Z28.310 Unvaccinated for COVID-19
CPT/HCPCS: 36415; 71045; 80053; 83735; 84484; 85025; 85610; 85730; 93005; 93041